=== PATIENT | female | born 1990 | race Caucasian/White ===

== ENCOUNTER → 2018-12-04 | Emergency (ER) | payer OTHER, MEDICAID | END | disposition home or self-care (01) | LOC: FTE 11:00 | DX: R09.81 Nasal congestion (principal); J45.909 Unspecified asthma, uncomplicated | CPT/HCPCS: 99283; Z7502 ==

== ENCOUNTER 2019-01-01 11:02 | Emergency (ER) | payer OTHER | END 2019-01-01 13:16 | disposition home or self-care (01) | LOC: FTE 11:02 | DX: L03.116 Cellulitis of left lower limb (principal); D17.24 Benign lipomatous neoplasm of skin and subcutaneous tissue of left leg; J45.909 Unspecified asthma, uncomplicated; F17.210 Nicotine dependence, cigarettes, uncomplicated | CPT/HCPCS: 99283; Z7502 ==